=== PATIENT | female | born 1955 | race African-American/Black ===

== ENCOUNTER 2018-05-11 17:31 | Emergency (ER) | payer OTHER ==
[2018-05-11] MEDS ORDERED: ASPIRIN 81 MG CHEWABLE TABLETS PO ONE (17:42)
[2018-05-11] MEDS ORDERED: ACETAMINOPHEN 500 MG TABLET (FP) PO ONE (17:42)
--- NOTE | 2018-05-11 17:42 | PDOC ---
Rapid Medical Evaluation Time Seen by Provider: 05/11/18 17:40 Medical Evaluation: Allergies Allergy/AdvReac Type Severity Reaction Status Date / Time shellfish derived AdvReac Mild Itching Verified 11/11/13 18:55 05/11/18 17:40 I have performed a brief in-person evaluation of this patient. The patient presents with a chief complaint of:abdominal pain with nausea and vomiting Pertinent physical exam findings:No gross deficits I have ordered the following:cardiac work up and lipase The patient will proceed to the ED for further evaluation. Discharge Disposition - Diagnosis Abdominal pain - Referrals - Patient Instructions - Post Discharge Activity
[2018-05-11 17:48] VITALS: TEMP 101.3; BMI 38.3
[2018-05-11 18:42] LABS: BASO % 0.8 % (0-2.0); EOS % 0.7 % (0-4.5); HEMATOCRIT 41.8 % (32.4-45.2); HEMOGLOBIN 14.5 GM/dL (10.7-15.3); LYMPH % 14.3 % (8-40); MCH 30.6 pg (25.7-33.7); MCHC 34.6 g/dl (32.0-36.0); MEAN CELL VOLUME 88.2 fl (80-96); MEAN PLT VOLUME 7.9 fl (7.5-11.1); MONO % 10.9 % (3.8-10.2); NEUT % 73.3 % (42.8-82.8); PLATELET COUNT 225 K/MM3 (134-434); RBC 4.74 M/mm3 (3.60-5.2); RDW 13.6 % (11.6-15.6); WHITE BLOOD COUNT 4.8 K/mm3 (4.0-10.0)
[2018-05-11] MEDS ORDERED: ACETAMINOPHEN 1000 MG/100 ML VIAL (NON FORMULARY) IVPB ONE (18:54)
[2018-05-11 19:02] LABS: INR 1.12 (0.83-1.09); PROTHROMBIN TIME (PATIENT) 13.2 SEC (9.7-13.0)
[2018-05-11 19:16] LABS: ALBUMIN 3.6 g/dl (3.4-5.0); ALK PHOS 71 U/L (45-117); ANION GAP 6 MMOL/L (8-16); BILIRUBIN,TOTAL 0.7 mg/dL (0.2-1); BLOOD UREA NITROGEN 7 mg/dL (7-18); CALCIUM 8.4 mg/dL (8.5-10.1); CHLORIDE 105 mmol/L (98-107); CO2 29 mmol/L (21-32); CREATININE 0.9 mg/dL (0.55-1.3); GLUCOSE,RANDOM 121 mg/dL (74-106); LIPASE 190 U/L (73-393); MAGNESIUM 1.5 mg/dL (1.8-2.4); POTASSIUM 3.6 mmol/L (3.5-5.1); SGOT/AST 150 U/L (15-37); SGPT/ALT 161 U/L (13-61); SODIUM 140 mmol/L (136-145); TOT PROT 7.5 g/dl (6.4-8.2)
--- NOTE | 2018-05-11 19:26 | PDOC ---
Attending Attestation - HPI HPI: This patient is a 62 year old female with PMHx of HTN, HLD, DM, chronic pain, GERD, who presents with 1 day of sore throat, headache, subjective fever, diffuse abdominal pain, nausea, vomiting, diarrhea, myalgias. Patient states she vomited 2x today. Family member states patient hasn't really eaten much since yesterday. She denies any sick contacts. She denies CP or SOB. Allergies: shellfish derived - Physicial Exam PE: Agree with Resident's Exam 05/11/18 20:06 <Mercedes Salgado - Last Filed: 05/11/18 20:48> - Resident Resident Name: Ren Polanco - ED Attending Attestation I have performed the following: I have examined & evaluated the patient, The case was reviewed & discussed with the resident, I agree w/resident's findings & plan - Medical Decision Making 05/11/18 21:20 62-year-old female with fever body aches and vomiting as well as sore throat Patient given IV fluid normal saline 1 L bolus as well as 1 g of IV acetaminophen with improvement She is tolerating by mouth well with no active abdominal pain Abdomen nondistended with no focal tenderness on exam Patient will be discharged home with instructions to return should she develop localizing symptoms or any worsening in her condition <Ariane Downs - Last Filed: 05/11/18 21:21> Attestations - Attestations 05/11/18 20:06 Documentation prepared by Mercedes Salgado, acting as medical staff coordinator for Ariane Downs DO, MD. <Mercedes Salgado - Last Filed: 05/11/18 20:48>
--- NOTE | 2018-05-11 20:15 | PDOC ---
History of Present Illness - General Chief Complaint: Pain Stated Complaint: WEAKNESS/FEVER/VOMITING/ABD PAIN Time Seen by Provider: 05/11/18 17:40 History Source: Patient Exam Limitations: No Limitations - History of Present Illness Initial Comments: 05/11/18 20:02 The patient is a 62F with a PMH of HTN, HLD, DM who presents to the ER with multiple complaints. The patient states that she was in her normal state of health yesterday and woke up this morning with a sore throat, cough, myalgias, headache, fever, nausea, vomiting, and diarrhea. She denies any sick contacts. She denies CP or SOB. Past History - Past Medical History Allergies/Adverse Reactions: Allergies Allergy/AdvReac Type Severity Reaction Status Date / Time shellfish derived AdvReac Mild Itching Verified 05/11/18 17:48 Home Medications: Ambulatory Orders Cyclobenzaprine HCl [Flexeril] 5 mg PO TID #10 tablet 11/11/13 Omeprazole [Prilosec (RX)] 40 mg PO DAILY 11/11/13 Oxycodone HCl/Acetaminophen [Percocet 5-325 mg Tablet -] 1 tab PO Q6H #14 tablet 11/11/13 COPD: No Diabetes: Yes GI Disorders: Yes (REFLUX) HTN: Yes Hypercholesterolemia: Yes - Suicide/Smoking/Psychosocial Hx Smoking History: Never smoked Information on smoking cessation initiated: No Hx Alcohol Use: No Drug/Substance Use Hx: No Substance Use Type: None Review of Systems - Review of Systems Able to Perform ROS?: Yes Comments:: 05/11/18 20:16 GENERAL/CONSTITUTIONAL: Positive for fevers and chills. No weakness. HEAD, EYES, EARS, NOSE AND THROAT: Positive for sore throat. No change in vision. No ear pain or discharge. CARDIOVASCULAR: No chest pain, palpitations, or lightheadedness. RESPIRATORY: Positive for cough. No wheezing, shortness of breath, or hemoptysis. GASTROINTESTINAL: Positive for nausea and vomiting. No diarrhea, constipation, or abdominal pain. GENITOURINARY: No dysuria, frequency, hematuria, or change in urination. MUSCULOSKELETAL: Positive for myalgias. No neck or back pain. SKIN: No rash or lesions. NEUROLOGIC: Positive for headache. No numbness, tingling, weakness, loss of consciousness, or change in strength/sensation. ENDOCRINE: No increased thirst. No abnormal weight change. HEMATOLOGIC/LYMPHATIC: No anemia, easy bleeding, or history of blood clots. ALLERGIC/IMMUNOLOGIC: No hives or skin allergy. Is the patient limited Lithuanian proficient: No *Physical Exam - Vital Signs Last Vital Signs Temp Pulse Resp BP Pulse Ox 101.3 F H 114 H 19 150/104 H 99 05/11/18 17:42 05/11/18 17:42 05/11/18 17:42 05/11/18 17:42 05/11/18 17:42 - Physical Exam Comments: 05/11/18 20:17 GENERAL: Well developed, well nourished. Awake and alert. No acute distress. HEENT: Normocephalic, atraumatic. Hearing grossly normal. Moist mucous membranes. PERRLA, EOMI. No conjunctival pallor. NECK: Supple. Full ROM. No JVD. CARDIOVASCULAR: Regular rate and rhythm. No murmurs, rubs, or gallops. PULMONARY: No evidence of respiratory distress. Lungs clear to auscultation bilaterally. No wheezing, rales or rhonchi. ABDOMINAL: Soft. Non-tender. Non-distended. No rebound or guarding. GENITOURINARY: No CVA tenderness bilaterally. MUSCULOSKELETAL: Normal range of motion at all joints. No bony deformities or tenderness. EXTREMITIES: No cyanosis. No clubbing. No edema. No calf tenderness or swelling. SKIN: Warm and dry. Normal capillary refill. No rashes. No jaundice. NEUROLOGICAL: Alert, awake, appropriate. Cranial nerves 2-12 grossly intact. Normal speech. Gait is normal without ataxia. PSYCHIATRIC: Cooperative. Good eye contact. Appropriate mood and affect. Moderate Sedation - Procedure Monitoring Vital Signs: Procedure Monitoring Vital Signs Temperature 101.3 F H 05/11/18 17:42 Pulse Rate 114 H 05/11/18 17:42 Respiratory Rate 19 05/11/18 17:42 Blood Pressure 150/104 H 05/11/18 17:42 O2 Sat by Pulse Oximetry (%) 99 05/11/18 17:42 Heart Score/ECG Review #1 General ECG Interpretation: Sinus Rhythm, Normal Rate, Normal Intervals, No acute ischemic changes Compared to previous ECG there are: No significant change 05/11/18 20:18 Sinus tach vent rate 105 AK 142 QRS 78 QTc 466 No STD or PONCHO No signs of acute ischemia ED Treatment Course - LABORATORY CBC & Chemistry Diagram: 05/11/18 18:23 05/11/18 18:23 - ADDITIONAL ORDERS Additional order review: Laboratory Results 05/11/18 05/11/18 05/11/18 18:32 18:23 18:23 PT with INR INR Sodium 140 Potassium 3.6 Chloride 105 Carbon Dioxide 29 Anion Gap 6 L BUN 7 Creatinine 0.9 Creat Clearance w eGFR > 60 Random Glucose 121 H Lactic Acid 1.2 Calcium 8.4 L Magnesium 1.5 L Total Bilirubin 0.7 AST 150 H ALT 161 H Alkaline Phosphatase 71 Creatine Kinase 114 Troponin I < 0.02 Total Protein 7.5 Albumin 3.6 Lipase Cancelled 190 05/11/18 18:23 PT with INR 13.20 H INR 1.12 H Sodium Potassium Chloride Carbon Dioxide Anion Gap BUN Creatinine Creat Clearance w eGFR Random Glucose Lactic Acid Calcium Magnesium Total Bilirubin AST ALT Alkaline Phosphatase Creatine Kinase Troponin I Total Protein Albumin Lipase 05/11/18 18:23 RBC 4.74 MCV 88.2 MCHC 34.6 RDW 13.6 MPV 7.9 Neutrophils % 73.3 Lymphocytes % 14.3 Monocytes % 10.9 H Eosinophils % 0.7 Basophils % 0.8 - Medications Given in the ED: ED Medications Discontinued Medications Generic Name Dose Route Start Last Admin Trade Name Troy PRN Reason Stop Dose Admin Acetaminophen 1,000 mg 05/11/18 17:42 05/11/18 18:56 Tylenol - PO 05/11/18 17:43 Not Given ONCE ONE Acetaminophen 1,000 mg 05/11/18 18:54 05/11/18 18:56 Ofirmev Injection - IVPB 05/11/18 18:55 1,000 mg ONCE ONE Administration Aspirin 162 mg 05/11/18 17:42 05/11/18 18:56 Asa - PO 05/11/18 17:43 Not Given ONCE ONE Medical Decision Making - Medical Decision Making 05/11/18 20:19 The patient is a 62F with a PMH of HTN, HLD, and DM who presents with 1 day of flu-like symptoms. Labs WNL. EKG unremarkable. PE unremarkable. Strep negative. CXR negative. Pending flu swab. 05/11/18 21:19 Strep and flu swab negative. UA negative. I have spoken with the patient extensively regarding return precautions. Pt understands. Will d/c with PCP f/u. *DC/Admit/Observation/Transfer Diagnosis at time of Disposition: Viral illness Abdominal pain Qualifiers: Abdominal location: unspecified location Qualified Code(s): R10.9 - Unspecified abdominal pain Fever Qualifiers: Fever type: unspecified Qualified Code(s): R50.9 - Fever, unspecified - Discharge Dispostion Disposition: HOME Condition at time of disposition: Stable Decision to Admit order: No - Referrals Referrals: Bebo Cabrera MD [Primary Care Provider] - - Patient Instructions Printed Discharge Instructions: DI for Viral Syndrome Additional Instructions: Please follow up with your primary care physician in 2-3 days. Please return to the ER if you have any signs or symptoms of chest pain, shortness of breath, uncontrollable fever, chills, nausea, vomiting, numbness, tingling, or weakness in any part of your body, changes in vision, or slurred speech. Please take your medications as prescribed. Please return to the ER if symptoms persist, worsen, or new symptoms arise. - Post Discharge Activity
[2018-05-11 20:56] LABS: URINE APPEARANCE CLEAR; URINE BILIRUBIN NEGATIVE (<2.0 mg/dL); URINE COLOR YELLOW; URINE GLUCOSE (UA) NEGATIVE (NEGATIVE); URINE KETONE NEGATIVE (NEGATIVE); URINE LEUK ESTERASE TRACE (NEGATIVE); URINE NITRITE NEGATIVE (NEGATIVE); URINE PROTEIN NEGATIVE (NEGATIVE)
[2018-05-11 20:59] LABS: EPI CELLS RARE /HPF (FEW)
[2018-05-11 21:19] VITALS: BP 123/74; PULSE 72
--- NOTE | 2018-05-12 15:41 | EKG ---
Test Reason : Blood Pressure : / mmHG Vent. Rate : 103 BPM Atrial Rate : 103 BPM P-R Int : 142 ms QRS Dur : 078 ms QT Int : 356 ms P-R-T Axes : 052 -12 015 degrees QTc Int : 466 ms SINUS TACHYCARDIA WITH PREMATURE ATRIAL COMPLEXES NONSPECIFIC ST AND T WAVE ABNORMALITY ABNORMAL ECG NO PREVIOUS ECGS AVAILABLE Confirmed by DEJA WILSON MD ([id number]) on 05/12/2018 3:41:20 PM Referred By: Confirmed By:DEJA WILSON MD
== END 2018-05-11 21:47 | disposition home or self-care (01) ==
LOC: JER 17:31
PROC: 3E033NZ Introduction of Analgesics, Hypnotics, Sedatives into Peripheral Vein, Percutaneous Approach (ICD-10-PCS; principal; 2018-05-11)
DX: B34.9 Viral infection, unspecified (principal); R10.9 Unspecified abdominal pain; R50.9 Fever, unspecified; I10 Essential (primary) hypertension; E78.5 Hyperlipidemia, unspecified; E11.9 Type 2 diabetes mellitus without complications
CPT/HCPCS: 36415; 71046-TC-FY; 80053; 81003; 81015; 82550; 83605; 83690; 83735; 84484; 85025; 85610; 87070; 87804; 87880; 93005; 93010; 99284-25; J0131

== ENCOUNTER 2021-10-18 10:55 | Inpatient (IN) | payer OTHER ==
[2021-10-18] MEDS ORDERED: ACETAMINOPHEN 325 MG TABLET (FP) PO ONE (13:40)
[2021-10-18 13:53] LABS: BASO % 0.8 % (0-2.0); EOS % 2.5 % (0-4.5); HEMATOCRIT 40.9 % (32.4-45.2); HEMOGLOBIN 13.5 GM/dL (10.7-15.3); LYMPH % 55.9 % (8-40); MCH 29.5 pg (25.7-33.7); MEAN CELL VOLUME 89.5 fl (80-96); MEAN PLT VOLUME 7.9 fl (7.5-11.1); MONO % 4.8 % (3.8-10.2); PLATELET COUNT 241 10^3/uL (134-434); RBC 4.57 M/mm3 (3.60-5.2); RDW 13.9 % (11.6-15.6); WHITE BLOOD COUNT 8.5 K/mm3 (4.0-10.0)
[2021-10-18] MEDS ORDERED: ACETAMINOPHEN 325 MG TABLET (FP) ONE (14:01)
[2021-10-18 14:07] LABS: CHLORIDE 111 mmol/L (98-107); SODIUM 148 mmol/L (136-145)
[2021-10-18 14:09] LABS: CALCIUM 8.9 mg/dL (8.5-10.1)
[2021-10-18 14:10] LABS: ALBUMIN 3.4 g/dl (3.4-5.0); ANION GAP 10 MMOL/L (8-16); BLOOD UREA NITROGEN 8.2 mg/dL (7-18); CO2 28 mmol/L (21-32); GLUCOSE,RANDOM 87 mg/dL (74-106); MAGNESIUM 2.1 mg/dL (1.8-2.4)
[2021-10-18 14:13] LABS: CREATININE 0.8 mg/dL (0.55-1.3); SGOT/AST 30 U/L (15-37); SGPT/ALT 25 U/L (13-61)
[2021-10-18 14:14] LABS: BILIRUBIN,TOTAL 0.7 mg/dL (0.2-1); TOT PROT 7.4 g/dl (6.4-8.2)
[2021-10-18 14:15] LABS: ALK PHOS 71 U/L (45-117)
[2021-10-18] MEDS ORDERED: POLYETHYLENE GLYCOL (HEALTHYLAX) 3350 17 GM PACKET PO PRN (21:13)
[2021-10-18] MEDS ORDERED: ACETAMINOPHEN 1000 MG/100 ML BAG IVPB PRN (21:23)
[2021-10-18] MEDS: INSULIN SLIDING SCALE (NOVOLOG) 1 VIAL SQ SCH (23:48)
[2021-10-19 05:01] VITALS: BMI 39.7
[2021-10-19] MEDS ORDERED: CYCLOBENZAPRINE HCL 5 MG TABLET PO PRN (06:10)
[2021-10-19] MEDS: HEPARIN NA (PORCINE) 5,000 UNITS/ML 1ML VIAL SQ SCH ×3 (06:28→21:24)
[2021-10-19] MEDS: INSULIN SLIDING SCALE (NOVOLOG) 1 VIAL SQ SCH ×4 (06:28→21:24)
[2021-10-19] MEDS ORDERED: MAG HYDROX/AL HYDROX/SIMETH 30 ML UNIT-DOSE CUP PO PRN (08:19)
[2021-10-19 09:51] LABS: CALCIUM 9.1 mg/dL (8.5-10.1)
[2021-10-19 09:52] LABS: BLOOD UREA NITROGEN 13.5 mg/dL (7-18)
[2021-10-19 09:55] LABS: CREATININE 0.9 mg/dL (0.55-1.3)
[2021-10-19 10:02] LABS: ACTIVATED PTT 29.9 SECONDS (25.2-36.5); INR 1.09 (0.83-1.09); PROTHROMBIN TIME (PATIENT) 12.5 SEC (9.7-13.0)
[2021-10-19] MEDS: LOSARTAN POTASSIUM 50 MG TABLET PO SCH (10:06)
[2021-10-19] MEDS: PANTOPRAZOLE 40 MG TABLET PO SCH (10:06)
[2021-10-19] MEDS: HYDROCHLOROTHIAZIDE 12.5 MG CAPSULE (FP) PO SCH (10:06)
[2021-10-19] MEDS ORDERED: ACETAMINOPHEN 325 MG TABLET (FP) PO PRN (21:13)
[2021-10-20] MEDS: INSULIN SLIDING SCALE (NOVOLOG) 1 VIAL SQ SCH ×4 (06:17→22:38)
[2021-10-20] MEDS: HEPARIN NA (PORCINE) 5,000 UNITS/ML 1ML VIAL SQ SCH ×3 (06:17→22:37)
[2021-10-20] MEDS: PANTOPRAZOLE 40 MG TABLET PO SCH (10:20)
[2021-10-20] MEDS: HYDROCHLOROTHIAZIDE 12.5 MG CAPSULE (FP) PO SCH (10:20)
[2021-10-20] MEDS: LOSARTAN POTASSIUM 50 MG TABLET PO SCH (10:20)
[2021-10-20] MEDS: GABAPENTIN 100 MG CAPSULE PO SCH (22:36)
[2021-10-21] MEDS: CELECOXIB 200 MG CAPSULE PO SCH ×3 (00:06→22:14)
[2021-10-21] MEDS: HEPARIN NA (PORCINE) 5,000 UNITS/ML 1ML VIAL SQ SCH ×3 (06:11→22:15)
[2021-10-21] MEDS: GABAPENTIN 100 MG CAPSULE PO SCH ×3 (06:11→22:14)
[2021-10-21] MEDS ORDERED: INSULIN (NOVOLOG) ASPART 100 UNITS/ML 10ML VIAL ONE (06:16)
[2021-10-21] MEDS: INSULIN SLIDING SCALE (NOVOLOG) 1 VIAL SQ SCH ×4 (06:17→22:17)
[2021-10-21 09:15] LABS: CALCIUM 9.2 mg/dL (8.5-10.1)
[2021-10-21 09:18] LABS: BILIRUBIN,TOTAL 0.5 mg/dL (0.2-1); TOT PROT 6.9 g/dl (6.4-8.2)
[2021-10-21 09:21] LABS: HEMATOCRIT 40.7 % (32.4-45.2); HEMOGLOBIN 13.5 GM/dL (10.7-15.3); MCH 29.7 pg (25.7-33.7); MCHC 33.3 g/dl (32.0-36.0); MEAN CELL VOLUME 89.4 fl (80-96); MEAN PLT VOLUME 9.2 fl (7.5-11.1); PLATELET COUNT 239 10^3/uL (134-434); RBC 4.56 M/mm3 (3.60-5.2); RDW 13.7 % (11.6-15.6); WHITE BLOOD COUNT 7.5 K/mm3 (4.0-10.0)
[2021-10-21] MEDS: PANTOPRAZOLE 40 MG TABLET PO SCH (09:28)
[2021-10-21] MEDS: HYDROCHLOROTHIAZIDE 12.5 MG CAPSULE (FP) PO SCH (09:28)
[2021-10-21] MEDS: LOSARTAN POTASSIUM 50 MG TABLET PO SCH (09:28)
[2021-10-21 10:47] LABS: ANISOCYTOSIS 0; HELMET CELLS 0; HOWELL-JOLLY BODIES 0; MACROCYTOSIS 0; OVALOCYTE 0; ROULEAU 0; SICKELED CELLS 0; TARGET CELLS 0; TEAR DROP CELLS 0; TOXIC GRANULATION 0
[2021-10-21 13:36] VITALS: RESP 18
[2021-10-22] MEDS: GABAPENTIN 100 MG CAPSULE PO SCH ×2 (06:03→13:44)
[2021-10-22] MEDS: HEPARIN NA (PORCINE) 5,000 UNITS/ML 1ML VIAL SQ SCH ×2 (06:04→13:44)
[2021-10-22] MEDS: INSULIN SLIDING SCALE (NOVOLOG) 1 VIAL SQ SCH ×2 (06:05→12:10)
[2021-10-22] MEDS: PANTOPRAZOLE 40 MG TABLET PO SCH (11:07)
[2021-10-22] MEDS: CELECOXIB 200 MG CAPSULE PO SCH (11:07)
[2021-10-22] MEDS: HYDROCHLOROTHIAZIDE 12.5 MG CAPSULE (FP) PO SCH (11:08)
[2021-10-22] MEDS: LOSARTAN POTASSIUM 50 MG TABLET PO SCH (11:08)
[2021-10-22 20:25] VITALS: BP 138/81; PULSE 67; TEMP 98.3
== END 2021-10-22 13:50 | disposition home or self-care (01) | DRG 552 ==
LOC: JER 10:55 → JERBED 16:18 → J7W 10-19 04:34
PROVIDERS: ADMIT Internal Medicine; ATTEND Internal Medicine
DX: M48.061 Spinal stenosis, lumbar region without neurogenic claudication (principal); M86.9 Osteomyelitis, unspecified; M54.30 Sciatica, unspecified side; M54.50 Low back pain, unspecified; E11.9 Type 2 diabetes mellitus without complications; I10 Essential (primary) hypertension; E78.5 Hyperlipidemia, unspecified; K21.9 Gastro-esophageal reflux disease without esophagitis; R25.2 Cramp and spasm; R20.0 Anesthesia of skin; Z68.39 Body mass index [BMI] 39.0-39.9, adult; E66.9 Obesity, unspecified
CPT/HCPCS: 36415; 71046-TC-FY; 72131-TC; 72148-TC; 80048; 80053; 82962; 83735; 85025; 85610; 85730; 86140; 87040; 93005; 93010; 97116-GP; 97161-GP; 99285-25; C9803-CS; J1644; U0003; U0005

== ENCOUNTER 2021-11-25 04:17 | Day surgery (SDC) | payer OTHER ==
[2021-11-24 18:27] VITALS: BMI 39.0
[2021-11-25] MEDS ORDERED: LIDOCAINE HCL/PF 1% SDV 5ML VIAL ONE (07:11)
[2021-11-25] MEDS ORDERED: DEXAMETHASONE SOD PHOSPHATE 10 MG/1 ML VIAL ONE (07:11)
[2021-11-25 08:18] VITALS: RESP 18
[2021-11-25] MEDS ORDERED: LIDOCAINE HCL 1% PRESERVATIVE FREE - 30ML VIAL IJ ONE ×2 (10:08→10:12)
[2021-11-25] MEDS ORDERED: DEXAMETHASONE SOD PHOSPHATE 10 MG/1 ML VIAL IVPUSH ONE ×2 (10:08→10:16)
[2021-11-25] MEDS ORDERED: IOHEXOL 180 MG/1 ML ML IJ ONE (10:13)
[2021-11-25 12:47] VITALS: BP 140/69; PULSE 54; TEMP 97.7
== END 2021-11-25 10:50 | disposition home or self-care (01) ==
LOC: JASU-SURG 04:17
PROVIDERS: ATTEND Pain Medicine Pain Medicine
PROC: 3E0R3BZ Introduction of Anesthetic Agent into Spinal Canal, Percutaneous Approach (ICD-10-PCS; 2021-11-25)
PROC: B01BYZZ Fluoroscopy of Spinal Cord using Other Contrast (ICD-10-PCS; 2021-11-25)
PROC: 3E0R33Z Introduction of Anti-inflammatory into Spinal Canal, Percutaneous Approach (ICD-10-PCS; principal; 2021-11-25 09:30)
DX: M48.061 Spinal stenosis, lumbar region without neurogenic claudication (principal); M54.16 Radiculopathy, lumbar region
CPT/HCPCS: 76000-TC-FY; J1100

== ENCOUNTER 2024-05-31 14:01 | Emergency (ER) | payer OTHER ==
[2024-05-31 14:21] VITALS: TEMP 98.9; BMI 36.8
[2024-05-31] MEDS ORDERED: ACETAMINOPHEN INJECTION 100 ML ONE (15:19)
[2024-05-31] MEDS ORDERED: FAMOTIDINE 20 MG/50 ML IVPB 20 MG/50 ML MG IVPB ONE (15:20)
[2024-05-31] MEDS ORDERED: ONDANSETRON 4 MG/2 ML VIAL ONE ×2 (15:20→20:40)
[2024-05-31] MEDS: FAMOTIDINE 20 MG/50 ML IVPB 20 MG/50 ML MG IVPB ONE (15:30)
[2024-05-31] MEDS: ONDANSETRON 4 MG/2 ML VIAL IVPUSH ONE (15:30)
[2024-05-31] MEDS: ACETAMINOPHEN 1000 MG/100 ML BAG IVPB ONE (15:30)
[2024-05-31] MEDS: SODIUM CHLORIDE 0.9% 1000 ML INFUS.BAG IV ONE (15:48)
[2024-05-31 15:52] LABS: BASO % 0.1 % (0-2.0); EOS % 0.3 % (0-4.5); HEMATOCRIT 43.7 % (32.4-45.2); HEMOGLOBIN 14.4 GM/dL (10.7-15.3); LYMPH % 12.2 % (8-40); MCH 28.5 pg (25.7-33.7); MCHC 32.9 g/dl (32.0-36.0); MEAN CELL VOLUME 86.7 fl (80-96); MEAN PLT VOLUME 7.4 fl (7.5-11.1); MONO % 4.2 % (3.8-10.2); NEUT % 83.2 % (42.8-82.8); PLATELET COUNT 279 10^3/uL (134-434); RBC 5.04 M/mm3 (3.60-5.2); RDW 14.1 % (11.6-15.6); WHITE BLOOD COUNT 8.4 K/mm3 (4.0-10.0)
[2024-05-31 16:17] LABS: POTASSIUM 4.6 mmol/L (3.5-5.1)
[2024-05-31 16:19] LABS: ALBUMIN 3.7 g/dl (3.4-5.0); CALCIUM 9.4 mg/dL (8.5-10.1)
[2024-05-31 16:20] LABS: BLOOD UREA NITROGEN 10.5 mg/dL (7-18); MAGNESIUM 2.2 mg/dL (1.8-2.4)
[2024-05-31 16:22] LABS: CREATININE 0.8 mg/dL (0.55-1.3)
[2024-05-31 16:23] LABS: PHOSPHOROUS 3.1 mg/dL (2.5-4.9)
[2024-05-31 16:24] LABS: TOT PROT 7.9 g/dl (6.4-8.2)
[2024-05-31 16:30] LABS: LACTIC ACID 2.2 mmol/L (0.4-2.0)
[2024-05-31] MEDS ORDERED: ALBUTEROL SO4 2.5/IPRATROPIUM 0.5 INH SOL 3 ML VIAL.NEB. NEB ONE (16:34)
[2024-05-31] MEDS ORDERED: CALCIUM GLUCONATE 10% - 1,000 MG/10 ML VIAL ONE (16:34)
[2024-05-31] MEDS ORDERED: MAGNESIUM SULFATE IN WATER 2 GM/50 ML IVPB IVPB ONE (16:35)
[2024-05-31 18:19] LABS: PH,URINE 7.5 (5.0-8.0); URINE APPEARANCE CLEAR; URINE BILIRUBIN NEGATIVE (NEGATIVE); URINE COLOR YELLOW; URINE GLUCOSE (UA) NEGATIVE (NEGATIVE); URINE KETONE NEGATIVE (NEGATIVE); URINE LEUK ESTERASE NEGATIVE (NEGATIVE); URINE NITRITE NEGATIVE (NEGATIVE); URINE PROTEIN NEGATIVE (NEGATIVE)
[2024-05-31] MEDS ORDERED: KETOROLAC TROMETHAMINE 15 MG/ML VIAL ONE (20:39)
[2024-05-31] MEDS: KETOROLAC TROMETHAMINE 15 MG/ML VIAL IVPUSH ONE (20:50)
[2024-05-31] MEDS: ONDANSETRON 4 MG/2 ML VIAL IVPB ONE (20:51)
[2024-05-31 22:18] VITALS: BP 121/67; RESP 16
[2024-05-31 23:06] VITALS: PULSE 68
== END 2024-06-01 00:42 | disposition home or self-care (01) ==
LOC: JER 14:01
PROC: 3E033GC Introduction of Other Therapeutic Substance into Peripheral Vein, Percutaneous Approach (ICD-10-PCS; principal; 2024-05-31)
PROC: 3E033NZ Introduction of Analgesics, Hypnotics, Sedatives into Peripheral Vein, Percutaneous Approach (ICD-10-PCS; 2024-05-31)
PROC: 3E0333Z Introduction of Anti-inflammatory into Peripheral Vein, Percutaneous Approach (ICD-10-PCS; 2024-05-31)
PROC: 3E033GC Introduction of Other Therapeutic Substance into Peripheral Vein, Percutaneous Approach (ICD-10-PCS; 2024-05-31)
PROC: 3E033GC Introduction of Other Therapeutic Substance into Peripheral Vein, Percutaneous Approach (ICD-10-PCS; 2024-05-31)
DX: R10.9 Unspecified abdominal pain (principal); R11.2 Nausea with vomiting, unspecified; R19.7 Diarrhea, unspecified
CPT/HCPCS: 0241U-QW; 36415; 74177-TC; 80053; 81003; 82962; 83605; 83690; 83735; 84100; 84484; 85025; 86850; 86900; 86901; 87086; 93005; 93010; 99285-25; J0131; Q9967